=== PATIENT | male | born 1955 | race Caucasian/White ===

== ENCOUNTER 2024-03-17 14:57 | Emergency (ER) | payer BC, OTHER ==
--- OUTSIDE RECORDS SUMMARY | 2024-03-17 15:00 | XMS REPORT | Continuity of Care Document ---
Author Name Unknown Address [address] [facility] [address] [place] [address] [facility] thconnect Address [address] [facility] [address] [place] [address] Care Team Providers Care Engagement Quality Consultant Name Role Phone Pcp, Patient Does Not Have A Primary Care Physic tyler 2, Pl Xr Attending Clinician Unavailable ARACELIS MOSQUEDA Attending Clinician Unavailable 1, Pl Us/Ir Attending Clinician Unavailable Steve Price Attending Clinician Unaharshad Mota RN, Lawanda Attending Clinician UnavailAracelis Go MD Attending Clinician [phone] Ana Chin RN Attending Clinician Unavailable Ruth Arnold MD Attending Clinician [phone] RUTH ARNOLD Attending Clinician Drew Eckert MD Attending Clinician + MILDRED SNIDER Attending Clinician UnavailDREA Marie Attending Clinician Unavailable DREW ALEJANDRO Attending Clinician Unaharshad lomax Doctor Unassigned, [place] Attending Clinician U navailable APRIL BENITES Attending Clinician Unavailable Delmis CHIN, April Attending Clinician , Adc Surg Spec Procedure Attending Clinician Unavailable Ruth CHIN, Toma Attending Clinician TOMA MIRANDA Attending Clinician Unavailable KE DEL TORO Attending Clinician Unavail able Nurse, Adc Pob Immunization Attending Clinician Unavailable Ke Del Toro DO Attending Clinician Payers Payer Name Policy Type Policy Number Effective Date Expirati on Date Source [place] [employer] COMM [id number] 2023 00:00:00 BCBS COMM [id number] 2021 00:00:00 Problems Condition Name Condition Details Condition Category Status Onset Date Resolution Date Last Treatment Date Treating Clinician Comments Source No known active problems No known active problems Disease [facility] Allergies, Adverse Reactions, Alerts Allergy Name Allergy Type Status Severity Reaction(s) Onset Date Inactive Date Treating Clinician Comments Source NO KNOWN ALLERGIE S Drug Class Active [facility] ALLERGIE S NOT ON FILE SYSTEMIC Active Ciara Corley [facility] Social History Social Habit Start Date Stop Date Quantity Comments Source Gender identity 2023-08-27 07:29:43 Identifies as male gender (finding) [facility] History of tobacco use Current smoker [facility] Sexual orientation [facility] Sexual orientation U [facility] History of Social function 2023-10-08 00:00:00 2023-10-08 00:00:00 [facility] Exposure to SARS-CoV-2 (event) 2022-02-11 00:00:00 2022-02-21 10:22:[address] [facility] Tobacco use and exposure 2022-02-21 00:00:00 2022-02-21 00:00:00 Smokeless tobacco non-user [facility] Sex Assigned At 1955 00:00:00 1955 00:00:00 [facility] Smoking Status Start Date Stop Date Source [facility] Medications Ordered Medication Name Filled Medication Name Start Date Stop Date Current Medication? Ordering Clinician Indication Dosage Frequency Signature (SIG) Comments Components Source ketorolac (Toradol) injection 15 mg ketorolac (Toradol) injection 15 mg 2023-06 006 21:40: 00 03-10 22:02 :00 No 15mg 15 mg, Intravenou s, Once, On 03/10/24 at 2140, For 1 dose Ciara Ivory iohexol (OMNIPaque) 350 MG/ML injection 100 mL iohexol (OMNIPaque) 350 MG/ML injection 100 mL 2023-06 0 19:23: 54 03-10 19:24 :00 No 100mL 100 mL, Intravenou s, Once in imaging, Starting on [place] 03/10/24 at 1923, For 1 dose Ciara Ivory albuterol HFA 90 mcg/act inhaler albuterol HFA 90 mcg/act inhaler 2023-06 0-06 00:00: 00 04-09 23:59 :00 No 1{puff} Q6H Inhale 1-2 puffs every 6 hours if needed for wheezing. Ciara Ivory methylPREDN ISolone (Medrol Dospak) 4 MG tablets methylPREDN ISolone (Medrol Dospak) 4 MG tablets 2023-06 0 00:00: 00 03-17 23:59 :00 No Follow schedule on package instructio ns Ciara Ivory lisinopriL 20 mg tablet 09-06 09:46: 36 Yes 20mg Take 20 mg by mouth daily. [facility] diclofenac 75 mg EC tablet 09-06 09:46: 36 Yes 75mg Take 75 mg by mouth 3 (three) times daily with meals. [facility] Immunizations Ordered Immunization Name Filled Immunization Name Date Status Comments Source SARS-COV-2 COVID-19 PFIZER VACCINE 2021-06-14 00:00:[address] [facility] SARS-COV-2 COVID-19 PFIZER VACCINE 2021-06-14 00:00:[address] [facility] SARS-COV-2 COVID-19 PFIZER VACCINE 2020-10-10 00:00:[address] [facility] SARS-COV-2 COVID-19 PFIZER VACCINE 2020-10-10 00:00:[address] [facility] SARS-COV-2 COVID-19 PFIZER VACCINE 2020-09-19 00:00:[address] [facility] SARS-COV-2 COVID-19 PFIZER VACCINE 2020-09-19 00:00:[address] [facility] SARS-COV-2 COVID-19 PFIZER VACCINE Unknown Completed [facility] Vital Signs Vital Name Observation Time Observation Value Comments S suece Respiratory rate 2024-03-15 09:50:52 16 /min [facility] O[facility] saturation in Arterial blood by Pulse oximetry 2024-03-15 09:50:52 94 /min [facility] Systolic blood pressure 2024-03-15 09:50:52 145 mm[Hg] [facility] Epic Diastolic blood pressure 2024-03-15 09:50:52 78 mm[Hg] [facility] Epic Heart rate 2024-03-15 09:50:52 79 /min [facility] [place] Epic Respiratory rate 2024-03-15 09:50:52 16 /min [facility] Oxygen saturation in Arterial blood by Pulse oximetry 2024-03-15 09:50:52 94 /min [facility] Systolic blood pressure 2024-03-15 09:50:52 145 mm[Hg] [facility] Diastolic blood pressure 2024-03-15 09:50:52 78 mm[Hg] [facility] Epic Heart rate 2024-03-15 09:50:52 79 /min [facility] [place] Epic Systolic blood pressure 2024-03-10 22:54:00 125 mm[Hg] [facility] Epic Diastolic blood pressure 2024-03-10 22:54:00 66 mm[Hg] [facility] Epic Heart rate 2024-03-10 22:54:00 84 /min [facility] [place] Epic Body temperature 2024-03-10 22:54:00 37.22 Mariama [facility] Respiratory rate 2024-03-10 22:54:00 16 /min [facility] Oxygen saturation in Arterial blood by Pulse oximetry 2024-03-10 22:54:00 96 /min [facility] Body height 2024-03-10 15:14:00 167.6 cm Nilo [facility] [place] Epic Body weight 2024-03-10 15:14:00 100 kg [facility] [place] Epic BMI 2024-03-10 15:14:00 35.58 kg/m2 Nilo [facility] [place] Epic Systolic blood pressure 2024-03-10 22:54:00 125 mm[Hg] [facility] Diastolic blood pressure 2024-03-10 22:54:00 66 mm[Hg] [facility] Heart rate 2024-03-10 22:54:00 84 /min [facility] Body temperature 2024-03-10 22:54:00 37.22 Mariama [facility] Respiratory rate 2024-03-10 22:54:00 16 /min [facility] Oxygen saturation in Arterial blood by Pulse oximetry 2024-03-10 22:54:00 96 /min [facility] Body height 2024-03-10 15:14:00 167.6 cm [facility] 2024-03-10 15:14:[address] [facility] BMI 2024-03-10 15:14:00 35.58 kg/m2 [facility] Systolic blood pressure 2022-02-21 16:11:00 120 mm[Hg] [facility] Diastolic blood pressure 2022-02-21 16:11:00 73 mm[Hg] [facility] Heart rate 2022-02-21 16:11:00 69 /min [facility] Body temperature 2022-02-21 16:11:[address] [facility] Respiratory rate 2022-02-21 16:11:00 18 /min [facility] Body height 2022-02-21 16:11:00 175.3 cm [facility] Body weight 2022-02-21 16:11:00 109.498 kg [facility] BMI 2022-02-21 16:11:00 35.65 kg/m2 [facility] Oxygen saturation in Arterial blood by Pulse oximetry 2022-02-21 16:11:00 95 /min [facility] Procedures Procedure Date / Time Performed Performing Clinician Source XR CHEST 1 VIEW 2024-03-15 10:18:44 Aracelis Mosqueda [facility]ailin [place] Epic XR CHEST 1 VIEW 2024-03-15 10:18:44 Aracelis Mosqueda Nilo riacailin [place] Epic US GUIDED THORACENTESIS 2024-03-15 10:08:00 Drew Hickman [facility] TROPONIN I HIGH SENSITIVITY CARESET (1ST HR) 2024-03-10 21:35:00 Ruth Arnold [facility] US ABDOMEN LIMITED 2024-03-10 21:33:16 Radha Arnold [facility] CT ANGIOGRAM CHEST PULMONARY EMBOLISM 2024-03-10 19:38:40 Ruth Arnold [facility] US LOWER EXTREMITY VENOUS DOPPLER BILATERAL 2024-03-10 19:13:52 Ruth Arnold [facility] XR CHEST 1 VIEW 2024-03-10 19:09:53 Arpit Arnold [facility] UA WITH CULTURE IF INDICATED 2024-03-10 18:13:00 Ruth Arnold [facility] CORONAVIRUS (COVID-19) LUCAS ICU/ISOLATION 2024-03-10 18:09:00 Ruth Arnold [facility] COMPREHENSIVE METABOLIC PANEL 2024-03-10 18:08:00 Ruth Arnold [facility] LIPASE LEVEL 2024-03-10 18:08:00 Ruth Arnold [facility] B-TYPE NATRIURETIC PEPTIDE 2024-03-10 18:08:00 Ruth Arnold [facility] COMPLETE BLOOD COUNT W/DIFF AND PLATELET 2024-03-10 18:08:00 Ruth Arnold [facility] TROPONIN I HIGH SENSITIVITY CARESET 2024-03-10 18:08:00 Ruth Arnold [facility] TROPONIN I HIGH SENSITIVITY CARESET (BASELINE) 2024-03-10 18:08:00 Ruth Arnold [facility] COMPLETE BLOOD COUNT 2024-03-10 18:08:00 Ruth Arnold [facility] AUTOMATED DIFFERENTIAL 2024-03-10 18:08:00 Ruth Arnold [facility] ECG 12 lead (arrhythmia) 2024-03-10 00:00:00 [facility] RADIOLOGY DOCUMENTATION 2022-09-06 05:01:00 Doct or Unassigned, [place] [facility] PHYSICIAN ORDERS 2022-02-22 05:01:00 Doctor Unas signed, [place] [facility] Encounters Start Date/Time End Date/Time Encounter Type Admission Type Attending [facility] Facility Care Department Encounter ID Source 2024-03-15 10:14:09 2024-03-15 23:59:00 Outpatient Informatio n Not Available [facility] [id number] EP 2024-03-15 10:10:00 2024-03-15 23:59:00 Hospital Encounter 2, Pl Xr [facility] [id number] 350.1.13.70 8.2.7.2.686 [id number] [facility] 2024-03-15 08:43:04 2024-03-15 10:09:00 Outpatient Informatio n Not Available ARACELIS MOSQUEDA [facility] [id number] EP 2024-03-15 08:43:04 2024-03-15 10:09:00 Hospital Encounter 1, Pl Us/Ir Adrien, Steve Mota, Lawanda Mosqueda, Aracelis Chin, Ana Jurado, Steve Mota, Lawanda Chin, [facility] [id number] 350.1.13.70 8.2.7.2.686 [id number] [facility] 2024-03-10 21:06:00 2024-03-10 23:55:00 Emergency [facility] [id number] 350.1.13.70 8.2.7.2.686 [id number] [facility] 2024-03-10 21:06:00 2024-03-10 23:55:00 Emergency [facility] Medicine [id number] [facility] 2023-10-25 14:30:00 2023-10-25 23:59:00 Hospital Encounter Elective Drew Alejandro [facility] [id number] 350.1.13.70 8.2.7.2.686 [id number] Memoria [facility] 2022-09-30 22:08:00 2022-10-01 00:47:00 Emergency E DREA NI [facility] [id number] [facility] 2022-09-29 07:22:00 2022-09-29 23:59:00 Outpatient DREW ALEJANDRO [facility] [id number] [facility] 2022-09-06 00:00:00 2022-09-06 00:00:00 Orders Only Doctor Unassigned, [place] [facility] [id number] 350.1.13.10 4.2.7.2.686 [id number] [facility] 2022-02-22 00:00:00 2022-02-22 00:00:00 Orders Only Doctor Unassigned, [place] [facility] 1.2840.114 350.1.13.10 4.2.7.2.686 [id number] [facility] 2022-02-21 11:15:00 2022-02-21 11:26:30 Outpatient R DELMIS [facility] [id number] [facility] 2022-02-21 11:15:00 2022-02-21 11:26:30 Office Visit Delmis [facility] 1..840.114 350.1.13.10 4.2.7.2.686 [id number] [facility] 2021-09-20 15:00:00 2021-09-20 15:21:16 Outpatient R DELMIS [facility] [id number] [facility] 2021-09-20 15:00:00 2021-09-20 15:21:16 Office Visit Delmis [facility] [id number] 350.1.13.10 4.2.7.2.686 [id number] [facility] 2021-09-20 00:00:00 2021-09-20 00:00:00 Orders Only Doctor Unassigned, [place] [facility] 1..114 350.1.13.10 4.2.7.2.686 [id number] [facility] 2021-09-10 00:00:00 2021-09-10 00:00:00 Telephone April Benites [facility] 1.20.114 350.1.13.10 4.2.7.2.686 [id number] [facility] 2021-09-06 10:15:00 2021-09-06 10:50:01 Office Visit April Benites, Adc Surg Spec Procedure [facility] 1..114 350.1.13.10 4.2.7.2.686 [id number] [facility] 2021-09-06 10:15:00 2021-09-06 10:50:01 Outpatient R DELMIS [facility] [id number] [facility] 2021-09-06 10:15:00 2021-09-06 10:50:01 Outpatient R DELMIS [facility] [id number] [facility] 2021-09-06 10:15:00 2021-09-06 10:15:00 [facility] [id number] [facility] 2021-09-06 00:00:00 2021-09-06 00:00:00 Orders Only Doctor Unassigned, [place] [facility] 1..114 350.1.13.10 4.2.7.2.686 [id number] [facility] 2021-08-04 00:00:00 2021-08-04 00:00:00 Telephone Toma Miranda [facility] 1..114 350.1.13.10 4.2.7.2.686 [id number] [facility] 2021-07-26 07:56:41 2021-07-26 23:59:00 [facility] [id number] [facility] 2021-07-26 11:00:00 2021-07-26 11:26:09 [facility] [id number] [facility] 2021-07-26 11:00:00 2021-07-26 11:26:09 Office Visit Delmis [facility] 1.2.840.114 350.1.13.10 4.2.7.2.686 [id number] [facility] 2021-06-14 10:20:00 2021-06-14 10:20:00 Outpatient KE SMITH [facility] [id number] [facility] 2021-06-14 10:20:00 2021-06-14 10:20:00 Imm/Inj Visit Nurse, Adc Pob Immunizatio Ke Burch [facility] 1.2.840.114 350.1.13.10 4.2.7.2.686 [id number] [facility] 2021-06-14 09:20:00 2021-06-14 09:45:40 [facility] [id number] [facility] 2021-06-14 09:20:00 2021-06-14 09:45:40 Office Visit Ruth [facility] 1.2.840.114 350.1.13.10 4.2.7.2.686 [id number] [facility] 2021-06-14 09:20:00 2021-06-14 09:20:00 Outpatient R [facility] [id number] [facility] 2021-05-20 00:00:00 2021-05-20 00:00:00 Orders Only Doctor Unassigned, [place] [facility] 1.2.840.114 350.1.13.10 4.2.7.2.686 [id number] [facility] 2020-09-19 13:25:00 2020-09-19 13:25:00 Outpatient [facility] [id number] [facility] 2019-07-13 10:18:00 2019-07-13 10:18:00 Emergency E MHBL [facility]BL 7500 [facility] Notes Date/Time Note Provider Source [facility] 00:39:45 Diagnosis Malignant neoplasm of right kidney, except renal pelvis (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) [facility]ps[facility]z8666-04-48 00:39:45 [place] [address]-10-12 00:39:44 [place] [address]-10-12 00:39:44 [place] [address]-10-07 00:05:37* [facility]-71 00:05:37Pending Results Scheduled Orders Name Type Priority Associated Diagnoses Orde r Schedule ECG 12 lead (arrhythmia) ECG STAT Once for 1 Occur rences starting 03/10/2024 until 03/10/2024 Health Maintenance Due Date Last Done Comments CT Colonography 1955 Colonoscopy 1955 FIT 1955 FOBT 1955 Lipid Panel 1955 Sigmoidoscopy 1955 DTaP/Tdap/Td Vaccines (1 - Tdap) 1974 Zoster Vaccines (1 of 2) 2005 Respiratory Syncytial Virus (RSV) or >=60 (1 - 1-dose 60+ series) 2015 Pneumococcal Vaccine: 65+ Ye ars (1 of 1 - PCV) 2020 Colorectal Cancer Screening 06/30/2022 FIT-DNA 06/30/2022 06/30/2019 Influenza Vaccine (#1) 2024 HIB Vaccines Aged Out No longer eligi ble based on patient's age to complete this topic HPV Vaccines Aged Out No longer eligi ble based on patient's age to complete this topic Hepatitis A Vaccines Aged Out No long er eligible based on patient's age to complete this topic Hepatitis B Vaccines Aged Out No long er eligible based on patient's age to complete this topic IPV Vaccines Aged Out No longer eligi ble based on patient's age to complete this topic Meningococcal Vaccine Aged Out No luis armando preston eligible based on patient's age to complete this topic Rotavirus Vaccines Aged Out No longer eligible based on patient's age to complete this topic [facility]bfecbv6977-03-08 00:05:37 Diagnosis Shortness of breath - Primar y Right-sided chest pain Calculus of gallbladder with out cholecystitis without obstruction Bronchitis Bronchitis, not specified as acute or chronic [facility]kkwvpl8802-02-43 00:05:37 [place] [id number] 04:15:43* [facility]Edjzxca6128-98-01 04:15:43Upcoming Encounters Health Maintenance Due Date Last Done Comments CT Colonography 1955 Colonoscopy 1955 Colorectal Cancer Screening 1955 FIT-DNA 1955 FIT 1955 FOBT 1955 Lipid Panel 1955 Sigmoidoscopy 1955 DTaP/Tdap/Td Vaccines (1 - Tdap) 1974 Zoster Vaccines (1 of 2) 2005 Respiratory Syncytial Virus (RSV) or >=60 (1 - 1-dose 60+ series) 2015 Pneumococcal Vaccine: 65+ Ye ars (1 of 1 - PCV) 2020 Influenza Vaccine (#1) 2024 HIB Vaccines Aged Out No longer eligi ble based on patient's age to complete this topic HPV Vaccines Aged Out No longer eligi ble based on patient's age to complete this topic Hepatitis A Vaccines Aged Out No long er eligible based on patient's age to complete this topic Hepatitis B Vaccines Aged Out No long er eligible based on patient's age to complete this topic IPV Vaccines Aged Out No longer eligi ble based on patient's age to complete this topic Meningococcal Vaccine Aged Out No luis armando preston eligible based on patient's age to complete this topic Rotavirus Vaccines Aged Out No longer eligible based on patient's age to complete this topic [facility] Center[facility]vqnske4960-06-74 04:15:43 Brittnee Corley
--- NOTE | 2024-03-17 15:43 | RAD REPORT ---
Procedure: Chest Single View HISTORY: Chest pain COMPARISON: 2022 FINDINGS: Bilateral pulmonary nodules are present. Bilateral hilar lymphadenopathy. Heart is normal size. No significant pleural effusion noted. The heart is normal size. IMPRESSION: These findings are compatible with metastatic disease
[2024-03-17] MEDS ORDERED: MORPHINE 4 MG/ML SYR ONE ×2 (16:08→18:37)
[2024-03-17 16:16] LABS: Absolute Basophils 0.1 K/uL (0-0.5); Absolute Eosinophils 0.5 K/uL (0-0.5); Absolute Lymphocytes (CBC) 1.5 K/uL (0.7-4.9); Absolute Monocytes 1.2 K/uL (0.1-1.3); Absolute Neutrophil 9.6 K/uL (1.8-8.0); Basophils % 0.9 % (0-1.3); Eosinophils % 3.5 % (0-4.4); Hematocrit 39.4 % (39.6-49.0); Hemoglobin 13.1 g/dL (13.6-17.9); Lymphocytes % 11.9 % (15.3-44.8); MCH 30.6 pg (27.0-35.0); MCHC 33.2 g/dL (32.0-36.0); MCV 92.2 fL (80-100); MPV 7.2 fL (7.6-11.3); Monocytes % 9.1 % (3.3-12.3); Neutrophils % 74.6 % (41.7-73.7); Platelets 319 thou/uL (152-406); RBC Red Blood Cell Count 4.27 M/uL (4.33-5.43); Red Cell Distribution Width 14.7 % (12.1-15.2)
[2024-03-17 16:17] LABS: PT Prothrombin Time 12.4 SECONDS (9.4-12.5); Protime INR 1.11
[2024-03-17 16:31] LABS: Anion Gap 9.9 mEq/L (5.0-15.0); Potassium 3.9 mEq/L (3.5-5.1); Troponin High Sensitivity 5.1 pg/mL (<58.9)
--- NOTE | 2024-03-17 17:38 | RAD REPORT ---
EXAMINATION: CTA CHEST PE CLINICAL INDICATION: Chest pain TECHNIQUE: 100 cc 370 Isovue administered intravenously. This examination was performed according to an angiographic protocol with 3D post-processing. This involves 3D reconstructions, MIPs, volume rendered images and/or shaded surface rendering. One or more of the following dose reduction techniqu es were used: Automated exposure control, adjustment of the mA and/or kV according to patient size, and/or iterative reconstruction. Unless otherwise specified, incidental findings do not require dedic ated imaging follow-up. [id number]. COMPARISON: 2022 FINDINGS: There is suboptimal opacification of the pulmonary arteries. No gross central seen A pulmonary embolu s is not seen. An aortic dissection not noted. Moderate right pleural effusion. Multiple right pleural masses. Small left pleural effusion. No pericardial effusion. Bilateral hilar and mediastinal lymphadenopathy. The lymph nodes measure up to 3.5 cm. Multiple,, bilateral pulmonary nodules. Left lower lobe nodule 2.1 cm. Medial right lower lobe mass 4 .5 cm. Left adrenal mass 3.1 cm. Several enlarged upper abdominal lymph nodes. Several enlarged lymph nodes within the epicardial fat. IMPRESSION: Suboptimal opacification of the pulmonary arteries. No gross central pulmonary embolus seen. Significant worsening metastatic disease
--- NOTE | 2024-03-17 18:34 | ER ---
Nurse's Notes [facility] Name: Bhavin Ramos Age: 68 yrs Sex: Male : 1955 Arrival Date: 03/17/2024 Time: 14:57 Bed 18 Private MD: Diagnosis: Chest pain, unspecified Presentation: 03/17 15:18 Chief complaint: Patient states: CP and SOB got worse today. Coronavirus screen: Client ll1 denies travel out of the [place] in the last 14 days. difficulty breathing, muscle pain, shortness of breath, Client presents with at least one sign or symptom that may indicate coronavirus-19. Standard/surgical mask placed on the client. Ebola Screen: Patient denies travel to an Ebola-affected area in the 21 days before illness onset. Initial Sepsis Screen: Does the patient meet any 2 criteria? No. Patient's initial sepsis screen is negative. Does the patient have a suspected source of infection? No. Patient's initial sepsis screen is negative. Risk Assessment: Do you want to hurt yourself or someone else? Patient reports no desire to harm self or others. Onset of symptoms was March 17, 2024. 15:18 Method Of Arrival: Ambulatory ll1 15:18 Acuity: TOI 3 ll1 Triage Assessment: 15:23 General: Appears uncomfortable, Behavior is calm, cooperative, appropriate for age. ll1 Pain: Complains of pain in chest Pain currently is 7 out of 10 on a pain scale. Quality of pain is described as pressure. Cardiovascular: Reports chest pain, shortness of breath. GI: Reports upper abdominal pain, bloating. Historical: - Allergies: 15:20 No Known Allergies; ll1 - PMHx: 15:20 Hypertension; lung CA; and renal cell CA; ll1 - PSHx: 15:20 None; ll1 - Immunization history:: Adult Immunizations up to date. - Infectious Disease History:: Denies. - Social history:: Smoking status: Patient denies any tobacco usage or history of. Screenin:25 [facility] ED Fall Risk Assessment (Adult) History of falling in the last 3 months, me1 including since admission No falls in past 3 months (0 pts) Confusion or Disorientation No (0 pts) Intoxicated or Sedated No (0 pts) Impaired Gait No (0 pts) Mobility Assist Device Used No (0 pt) Altered Elimination No (0 pt) Score/Fall Risk Level 0 - 2 = Low Risk Maintained a safe environment, Provided non-skid footwear, Hourly rounding (assess needs \T\ fall precautionary measures) done. Abuse screen: Denies threats or abuse. Nutritional screening: No deficits noted. Tuberculosis screening: No symptoms or risk factors identified. Assessment: 15:25 General: Appears uncomfortable, well groomed, well developed, well nourished, Behavior me1 is calm, cooperative, appropriate for age, Reports CP and SOB that started while showering. Pain: Complains of pain in chest Pain does not radiate. Pain currently is 6 out of 10 on a pain scale. Quality of pain is described as pressure, Pain began suddenly, Is continuous. Neuro: Level of Consciousness is awake, alert, obeys commands, Oriented to person, place, time, situation, Appropriate for age. Cardiovascular: Patient's skin is warm and dry. Cardiovascular: Reports chest pain, shortness of breath. Respiratory: Airway is patent Respiratory effort is even, unlabored, Respiratory pattern is regular, symmetrical. Respiratory: Reports shortness of breath at rest on exertion. GI: No signs and/or symptoms were reported involving the gastrointestinal system. : No signs and/or symptoms were reported regarding the genitourinary system. EENT: No signs and/or symptoms were reported regarding the EENT system. Derm: Skin is intact, is healthy with good turgor, Skin is pink, warm \T\ dry. Musculoskeletal: No signs and/or symptoms reported regarding the musculoskeletal system. Vital Signs: 15:18 BP 155 / 73; Pulse 89; Resp 20; Temp 98.2; Pulse Ox 94% ; Weight 104.33 kg; Height 5 ll1 ft. 10 in. ; Pain 7/10; 16:00 BP 126 / 69; Pulse 89; Resp 17; Pulse Ox 94% ; me1 17:00 BP 144 / 63; Pulse 87; Resp 16; Pulse Ox 93% ; me1 18:00 BP 133 / 76; Pulse 86; Resp 14; Pulse Ox 94% ; me1 18:30 BP 131 / 65; Pulse 86; Resp 16; Temp 98.4; Pulse Ox 93% ; me1 15:18 Body Mass Index 33.00 (104.33 kg, 177.8 cm) ll1 15:18 Pain Scale: Adult ll1 ED Course: 15:03 Patient arrived in ED. mg5 15:10 Tone Burch MD is Attending Physician. ec2 15:20 Triage completed. ll1 15:23 Arm band placed on Patient placed in an exam room, on a stretcher. EKG completed in ll1 triage. Results shown to MD. 15:25 Patient has correct armband on for positive identification. Bed in low position. Call me1 light in reach. Side rails up X2. Provided Education on: POC. Verbalized understanding. . Client placed on continuous cardiac and pulse oximetry monitoring. NIBP monitoring applied. nuclear monitoring technician on. Pulse ox on. NIBP on. 15:25 No provider procedures requiring assistance completed. Patient maintains SpO2 wi1 saturation greater than 95% on room air. 15:27 Renay De La Torre, RN is Primary Nurse. me1 15:30 XRAY Chest (1 view) In Process Unspecified. EDMS 15:47 EKG done, by ED staff, reviewed by Tone Burch MD. me1 16:11 Basic Metabolic Panel Sent. me1 16:11 CBC with Diff Sent. me1 16:11 NT PRO-BNP Sent. me1 16:11 PT-INR Sent. me1 16:11 Troponin HS Sent. me1 16:11 Initial lab(s) drawn, by me, sent to lab. Inserted saline lock: 22 gauge in left me1 antecubital area, using aseptic technique. 17:20 CT Chest For PE Angio In Process Unspecified. EDMS 17:51 Repeat lab(s) drawn. by me, sent to lab. EKG done, by ED staff, reviewed by Tone Burch MD. 19:01 IV discontinued, intact, bleeding controlled, No redness/swelling at site. Pressure me1 dressing applied. Administered Medications: 16:12 Drug: morphine IVP or IV 4 mg IVP once over 4 mins Route: IVP; Infused Over: 4 mins; me1 Site: left antecubital; 16:32 Follow up: Response: No adverse reaction; Pain is decreased me1 18:42 Drug: morphine IVP or IV 4 mg IVP once over 4 mins Route: IVP; Infused Over: 4 mins; me1 Site: left antecubital; 18:43 Follow up: Response: No adverse reaction; Pain is decreased [facility] [place]: 15:25 VIS not applicable for this client. me1 Outcome: 18:34 Discharge ordered by . ec2 19:01 Discharged to [place] via [place], with significant other[place] [facility] [place] Condition: stable 19:01 Discharge instructions given to patient, significant other, Instructed on discharge instructions, follow up and referral plans. Demonstrated understanding of instructions, follow-up care, 19:02 Patient left the ED. wi1 Signatures: Dispatcher [employer] Jesus Manuel Nugent RN RN 1 Renay De La Torre RN RN wi1 Sarah Asencio mg5 Tone Burch MD MD ec2
--- NOTE | 2024-03-17 18:34 | EDPHYS ---
Physician Documentation [facility] Name: Bhavin Ramos Age: 68 yrs Sex: Male : 1955 Arrival Date: 03/17/2024 Time: 14:57 Bed 18 Private MD: ED Physician Tone Burch HPI: 03/17 15:51 This 68 yrs old Male presents to ER via Ambulatory with complaints of Chest ec2 Tightness. 15:51 Patient arrives today for evaluation of chest pressure. Reports history of hypertension ec2 and lung cancer. Reports that he recently had a thoracentesis 2 days ago. Reports of chest tightness as well as shortness of breath. Patient reports that they drained approximately 1.5 L.. Historical: - Allergies: 15:20 No Known Allergies; ll1 - PMHx: 15:20 Hypertension; lung CA; and renal cell CA; ll1 - PSHx: 15:20 None; ll1 - Immunization history:: Adult Immunizations up to date. - Infectious Disease History:: Denies. - Social history:: Smoking status: Patient denies any tobacco usage or history of. ROS: 15:51 Constitutional: as per hpi ec2 Exam: 15:51 Constitutional: GEN: NAD Head: atraumatic Eyes: EOMI Ears: External ears are ec2 normal. CV: regular rate LUNGS: no respiratory distress ABD: non-distended SKIN: no evidence of rashes MSK: no evidence of trauma Vital Signs: 15:18 BP 155 / 73; Pulse 89; Resp 20; Temp 98.2; Pulse Ox 94% ; Weight 104.33 kg; Height 5 ll1 ft. 10 in. ; Pain 7/10; 16:00 BP 126 / 69; Pulse 89; Resp 17; Pulse Ox 94% ; me1 17:00 BP 144 / 63; Pulse 87; Resp 16; Pulse Ox 93% ; me1 18:00 BP 133 / 76; Pulse 86; Resp 14; Pulse Ox 94% ; me1 18:30 BP 131 / 65; Pulse 86; Resp 16; Temp 98.4; Pulse Ox 93% ; me1 15:18 Body Mass Index 33.00 (104.33 kg, 177.8 cm) ll1 15:18 Pain Scale: Adult ll1 MDM: 15:45 ED course: EKG independently reviewed and interpreted by me, shows normal sinus rhythm, ec2 rate of 96, no acute ST segment elevations, PVC noted, intervals are nonactionable.. 15:51 Data reviewed: vital signs. ED course: Patient arrives today for evaluation of chest ec2 tightness. Examination remarkable for uncomfortable individuals otherwise with reassuring vital signs. Will obtain cardiac workup.. 16:32 ED course: Metabolic profile is reassuring. CBC with slight leukocytosis noted. BNP ec2 minimally elevated. INR and troponin are nonactionable. Chest x-ray shows metastatic disease which is known for the patient. Will obtain CT scan of the chest to eval for PE as well . 18:00 ED course: Repeat EKG independently reviewed and interpreted by me, shows normal sinus ec2 rhythm, rate of 86, no acute ST segment elevation, intervals are nonactionable.. 18:01 ED course: CT scan of the chest shows significant worsening in the metastatic disease ec2 otherwise no evidence of PE, no significant infection appreciated. . 18:31 ED course: On reassessment patient is well-appearing and in no acute distress. I ec2 suspect progression of patient's disease causing patient's pain. I discussed long-term pain management and patient states he has been prescribed morphine however has not been taking it as he did not want become addicted to it however will reinitiate this at home. Will discharge home and have him follow-up with his PCP and cancer doctor. Return precautions given. . 18:34 Patient medically screened. ec2 03/17 15:10 Order name: Basic Metabolic Panel; Complete Time: 16:31 ec2 03/17 15:10 Order name: CBC with Diff; Complete Time: 16: ec2 03/17 15:10 Order name: NT PRO-BNP; Complete Time: 16:31 ec2 03/17 15:10 Order name: PT-INR; Complete Time: 16:31 ec2 03/17 15:10 Order name: Troponin HS; Complete Time: 16: ec2 03/17 17:26 Order name: Troponin High Sensitivity; Complete Time: 18:13 ec2 03/17 15:10 Order name: XRAY Chest (1 view); Complete Time: 16:31 ec2 03/17 16:32 Order name: CT Chest For PE Angio; Complete Time: 18:01 ec2 03/17 15:10 Order name: Cardiac monitoring; Complete Time: 16:11 ec2 03/17 15:10 Order name: EKG - Nurse/Tech; Complete Time: 15:47 ec2 03/17 15:10 Order name: IV Saline Lock; Complete Time: 16:11 ec2 03/17 15:10 Order name: Labs collected and sent; Complete Time: 16:11 ec2 03/17 15:10 Order name: O2 Per Protocol; Complete Time: 16:11 ec2 03/17 15:10 Order name: O2 Sat Monitoring; Complete Time: 16:11 ec2 03/17 17:26 Order name: EKG - Nurse/Tech; Complete Time: 17:51 ec2 03/17 17:26 Order name: Misc. Order: repeat ekg/trop; Complete Time: 17:51 ec2 Administered Medications: 16:12 Drug: morphine IVP or IV 4 mg IVP once over 4 mins Route: IVP; Infused Over: 4 mins; me1 Site: left antecubital; 16:32 Follow up: Response: No adverse reaction; Pain is decreased me1 18:42 Drug: morphine IVP or IV 4 mg IVP once over 4 mins Route: IVP; Infused Over: 4 mins; me1 Site: left antecubital; 18:43 Follow up: Response: No adverse reaction; Pain is decreased me1 Disposition Summary: 03/17/24 18:34 Discharge Ordered Notes: Location: Home ec2 Condition: Stable ec2 Diagnosis - Chest pain, unspecified ec2 Followup: ec2 - With: Private Physician - When: - Reason: Re-evaluation by your physician Discharge Instructions: - Discharge Summary Sheet ec2 - Nonspecific Chest Pain, Adult, [id number] ec2 Forms: - Medication Reconciliation Form ec2 - Antibiotic Education ec2 - Prescription Opioid Use ec2 - Patient Portal Instructions ec2 - Leadership Thank You Letter ec2 Signatures: Dispatcher [employer] Jesus Manuel Nugent RN RN ll1 Renay De La Torre RN RN me1 Tone Burch MD MD ec2 Corrections: (The following items were deleted from the chart) 15:11 15:11 Chest Single View+RAD.RAD.BRZ ordered. EDMS EDMS 16:32 16:32 Chest For PE Angio+CT.RAD.BRZ ordered. EDMS EDMS 17:27 17:26 Troponin High Sensitivity+C.LAB.BRZ ordered. EDMS EDMS
[2024-03-17 23:00] VITALS: BP 131/65; TEMP 98.4; O2SAT 93
== END 2024-03-17 19:02 | disposition home or self-care (01) ==
LOC: ER 14:57
DX: R07.89 Other chest pain (principal); I10 Essential (primary) hypertension; C34.90 Malignant neoplasm of unspecified part of unspecified bronchus or lung
CPT/HCPCS: 93005 ×2; 85025; 80048; 36415; 85610; 84484 ×2; 83880; 71275; 71045; Q9967